=== PATIENT | female | born 1995 | race Caucasian/White ===

== ENCOUNTER 2017-05-08 09:16 | Emergency (ER) | payer OTHER ==
--- OUTSIDE RECORDS SUMMARY | 2017-05-08 09:26 | XMS REPORT ---
:1995 [facility] [address] [place] [address] Care Team Providers Name Role Phone Anshu Braswell Unavailable Unavailable Problems This patient has no known problems. Allergies, Adverse Reactions, Alerts This patient has no known allergies or adverse reactions. Medications This patient has no known medications. Results Test Description Test Time Test Comments Text Results Atomic Results Result Comments Chemistry 2016-09-26 07:19:00 Test Item Value Reference Range Comments Chemistry (test code=NA-T) 137 mmol/L 136-145 Chemistry (test code=K-T) 4.2 mmol/L 3.5-5.1 Chemistry (test code=CL) 107 mmol/L 98-107 Chemistry (test code=CO2) 24 mmol/L 22-29 Chemistry (test code=ANGP) 10 mmol/L 10-20 Chemistry (test code=BUN) 9 mg/dL 7.0-18.7 Chemistry (test code=CREATT) 0.82 mg/dL 0.6-1.1 Chemistry (test code=EGFRMDRD) 89 Reference Range for Estimated GFR: Greater than 90 mL/min/1.73 m2NOTE:The MDRD equation has not been validated for use with theelderly (over 70 years of age), women, patientswith serious comorbid condition or persons with extremes ofbody size, muscle mass, or nutritional status. Chemistry (test code=GLU-T) 136 mg/dL 70-105 Chemistry (test code=CA) 9.1 mg/dL 7.8-10.44 [id number] 07:19:00 Test Item Value Reference Range Comments Chemistry (test code=CK) 415 U/L 29-168 [id number] 07:19:00 Test Item Value Reference Range Comments Chemistry (test code=PHOS) 3.0 mg/dL 2.3-4.7 [id number] 07:19:00 Test Item Value Reference Range Comments Chemistry (test code=MG) 2.0 mg/dL 1.7-2.2 [id number] 06:37:00 Test Item Value Reference Range Comments Hematology (test code=WBCT) 14.7 thou/uL 4.8-10.8 Hematology (test code=RBCT) 4.07 mill/uL 4.00-5.20 Hematology (test code=HGBT) 12.4 g/dL 12.0-16.0 Hematology (test code=HCTT) 36.8 % 36.0-47.0 Hematology (test code=MCV) 90.5 fl 77.0-87.0 Hematology (test code=MCH) 30.6 pg 25.0-35.0 Hematology (test code=MCHC) 33.8 g/dL 32.0-36.0 Hematology (test code=RDW) 12.7 % 11.5-14.5 Hematology (test code=PLTT) 229 thou/uL 130-400 Hematology (test code=MPV) 6.8 fL 7.4-10.4 Hematology (test code=%NEUT) 94.4 % 31.0-61.0 Hematology (test code=%LYMPH) 2.9 % 28.0-48.0 Hematology (test code=%MONO) 2.6 % 0.0-4.0 Hematology (test code=%EOS) 0.1 % 0.0-10.0 Hematology (test code=%BASO) 0.0 % 0.0-1.0 Hematology (test code=NEUT#) 13.9 thou/uL 1.40-6.50 Hematology (test code=LYMPH#) 0.4 thou/uL 1.20-3.40 Hematology (test code=MONO#) 0.4 thou/uL 0.11-0.59 Hematology (test code=EOS#) 0.0 thou/uL 0.0-0.7 Hematology (test code=BASO#) 0.0 thou/uL 0.0-0.2 Chemistry - [id number] 22:06:00 Test Item Value Reference Range Comments Chemistry - Specials (test Negative NEGATIVE Method of sensitivity- code=BHCGST) Indeterminant: results should be repeated after 48-72 hrs Positive: results may be detected as early as 1 day after the first missed menses. [id number] 21:20:00 Test Item Value Reference Range Comments Chemistry (test code=CK) 78 U/L 29-168 Blood in [id number] 20:12:00 Test Item Value Reference Range Comments Chemistry (test code=NA-T) 136 mmol/L 136-145 Chemistry (test code=K-T) 3.8 mmol/L 3.5-5.1 Chemistry (test code=CL) 108 mmol/L 98-107 Chemistry (test code=CO2) 18 mmol/L 22-29 Chemistry (test code=ANGP) 14 mmol/L 10-20 Chemistry (test code=BUN) 14 mg/dL 7.0-18.7 Chemistry (test code=CREATT) 0.81 mg/dL 0.6-1.1 Chemistry (test 90 Reference Range for Estimated code=EGFRMDRD) GFR: Greater than 90 mL/min/1.73 m2NOTE:The MDRD equation has not been validated for use with theelderly (over 70 years of age), women, patientswith serious comorbid condition or persons with extremes ofbody size, muscle mass, or nutritional status. Chemistry (test code=GLU-T) 130 mg/dL 70-105 Chemistry (test code=CA) 8.9 mg/dL 7.8-10.44 Chemistry (test code=TBILI) 0.3 mg/dL 0.2-1.2 Chemistry (test code=TP) 6.9 g/dL 6.0-8.3 Chemistry (test code=ALB) 4.0 g/dL 3.5-5.0 Chemistry (test code=GLOB) 2.9 g/dL 2.4-3.5 Chemistry (test code=AG) 1.4 g/dL 1.2-2.2 Chemistry (test code=ALP) 86 U/L 40-150 Chemistry (test code=AST) 19 U/L 5-34 Chemistry (test code=ALT) 12 U/L 8-55 [id number] 20:12:00 Test Item Value Reference Range Comments Chemistry (test Less than 10 Less than 10 The pharmacological response code=ETOH) mg/dL to blood alcohol levels mayvary from individual to individual. Negative: Less than 10 mg/dL Toxic: 50 - 100 mg/dL Depression of WINDOWS SERVER SUPPORT TECHNICIAN: Greater than 100 mg/dL Fatalities reported: Greater than 400 mg/dL Chemistry - [id number] 20:09:00 Test Item Value Reference Range Comments Chemistry - Lactate (test code=LACTSEP-T) 1.3 mmol/L 0.5-2.2 [id number] 19:53:00 Test Item Value Reference Range Comments Hematology (test code=WBCT) 15.6 thou/uL 4.8-10.8 Hematology (test code=RBCT) 4.45 mill/uL 4.00-5.20 Hematology (test code=HGBT) 13.0 g/dL 12.0-16.0 Hematology (test code=HCTT) 40.0 % 36.0-47.0 Hematology (test code=MCV) 89.8 fl 77.0-87.0 Hematology (test code=MCH) 29.2 pg 25.0-35.0 Hematology (test code=MCHC) 32.5 g/dL 32.0-36.0 Hematology (test code=RDW) 12.7 % 11.5-14.5 Hematology (test code=PLTT) 253 thou/uL 130-400 Hematology (test code=MPV) 9.0 fL 7.4-10.4 Hematology (test code=%NEUT) 78.5 % 31.0-61.0 Hematology (test code=%LYMPH) 12.3 % 28.0-48.0 Hematology (test code=%MONO) 7.7 % 0.0-4.0 Hematology (test code=%EOS) 0.8 % 0.0-10.0 Hematology (test code=%BASO) 0.7 % 0.0-1.0 Hematology (test code=NEUT#) 12.2 thou/uL 1.40-6.50 Hematology (test code=LYMPH#) 1.9 thou/uL 1.20-3.40 Hematology (test code=MONO#) 1.2 thou/uL 0.11-0.59 Hematology (test code=EOS#) 0.1 thou/uL 0.0-0.7 Hematology (test code=BASO#) 0.1 thou/uL 0.0-0.2
--- NOTE | 2017-05-08 10:50 | ER ---
Nurse's Notes [facility] Name: Steffen Edge Age: 22 yrs Sex: Female : 1995 Arrival Date: 05/08/2017 Time: 09:18 Bed 15 Private MD: Diagnosis: Acute upper respiratory infection, unspecified Presentation: 05/08 09:30 Presenting complaint: Patient states: sore, itchy throat and sinus pressure x 3 days. ss Denies fever. Transition of care: patient was not received from another setting of care. Onset of symptoms was May 05, 2017. Care prior to arrival: None. 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 - Social history:: Smoking status: Patient/guardian denies using tobacco. Screenin:56 Abuse screen: Denies threats or abuse. Nutritional screening: No deficits noted. rb1 Tuberculosis screening: No symptoms or risk factors identified. Fall Risk None identified. Assessment: 09:56 General: Appears in no apparent distress. comfortable, Behavior is calm, cooperative. rb1 General: Reports chills for 2-3 days. Pain: Complains of pain in throat Pain currently is 5 out of 10 on a pain scale. Pain began 2-3 days ago. Neuro: Level of Consciousness is awake, alert, obeys commands, Oriented to person, place, time, situation. Cardiovascular: Capillary refill < 3 seconds is brisk in bilateral fingers. Respiratory: Airway is patent Respiratory effort is even, unlabored, Respiratory pattern is regular, symmetrical, Breath sounds are clear bilaterally. GI: Reports nausea. : No signs and/or symptoms were reported regarding the genitourinary system. EENT: Throat is reddened. Derm: Skin is pink, warm \T\ dry. 10:55 Reassessment: Patient appears in no apparent distress at this time. No changes from rb1 previously documented assessment. Vital Signs: 09:33 BP 115 / 74; Pulse 94; Resp 15; Temp 97.8(TE); Pulse Ox 100% on R/A; Weight 72.57 kg; Height 5 ft. 0 in. (152.40 cm); Pain 7/10; 10:30 BP 119 / 81; Pulse 88; Resp 18; Pulse Ox 99% on R/A; rb1 09:33 Body Mass Index 31.25 (72.57 kg, 152.40 cm) ED Course: 09:18 Patient arrived in ED. as 09:32 Triage completed. 09:33 Arm band placed on left wrist. 09:56 Meme Wilson, RN is Primary Nurse. rb1 09:56 Patient has correct armband on for positive identification. Bed in low position. Call rb1 light in reach. Side rails up X 1. Pulse ox on. NIBP on. 09:57 Renato Alberts MD is Attending Physician. 10:59 No provider procedures requiring assistance completed. Patient did not have IV access rb1 during this emergency room visit. Administered Medications: No medications were administered Outcome: 10:49 Discharge ordered by . gs 10:59 Discharged to home ambulatory, with family. rb1 10:59 Condition: stable 10:59 Discharge instructions given to patient, Instructed on discharge instructions, follow up and referral plans. medication usage, Demonstrated understanding of instructions, follow-up care, medications, Prescriptions given X 2. 10:59 Patient left the ED. rb1 Signatures: Alena Boyce Shelby, RN RN Meme Wilson, RAMSEY RN [facility] Renato Alberts MD MD
--- NOTE | 2017-05-08 10:50 | EDPHYS ---
Physician Documentation [facility] Name: Steffen Edge Age: 22 yrs Sex: Female : 1995 Arrival Date: 05/08/2017 Time: 09:18 Bed 15 Private MD: ED Physician Renato Alberts HPI: 05/08 10:44 This 22 yrs old Unknown Female presents to ER via Ambulatory with complaints of Cough, gs Sore Throat. 10:44 The patient or guardian reports cough, flu symptoms, arthralgias, myalgias. Onset: The gs symptoms/episode began/occurred 3 day(s) ago. Severity of symptoms: At their worst the symptoms were moderate, in the emergency department the symptoms are unchanged. Modifying factors: The symptoms are alleviated by nothing, the symptoms are aggravated by nothing. Associated signs and symptoms: Pertinent positives: chest pain, sore throat, Pertinent negatives: fever, nausea. The patient has experienced similar episodes in the past, a few times. 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 - Social history:: Smoking status: Patient/guardian denies using tobacco. ROS: 10:44 All other systems are negative. gs Exam: 10:44 Head/Face: Normocephalic, atraumatic. Eyes: Pupils equal round and reactive to light, gs extra-ocular motions intact. Lids and lashes normal. Conjunctiva and sclera are non-icteric and not injected. Cornea within normal limits. Periorbital areas with no swelling, redness, or edema. ENT: Nares patent. No nasal discharge, no septal abnormalities noted. Tympanic membranes are normal and external auditory canals are clear. Oropharynx with no redness, swelling, or masses, exudates, or evidence of obstruction, uvula midline. Mucous membranes moist. Neck: Trachea midline, no thyromegaly or masses palpated, and no cervical lymphadenopathy. Supple, full range of motion without nuchal rigidity, or vertebral point tenderness. No Meningismus. Chest/axilla: Normal chest wall appearance and motion. Nontender with no deformity. No lesions are appreciated. Cardiovascular: Regular rate and rhythm with a normal S1 and S2. No gallops, murmurs, or rubs. Normal PMI, no JVD. No pulse deficits. Respiratory: Lungs have equal breath sounds bilaterally, clear to auscultation and percussion. No rales, rhonchi or wheezes noted. No increased work of breathing, no retractions or nasal flaring. Abdomen/GI: Soft, non-tender, with normal bowel sounds. No distension or tympany. No guarding or rebound. No evidence of tenderness throughout. Back: No spinal tenderness. No costovertebral tenderness. Full range of motion. Skin: Warm, dry with normal turgor. Normal color with no rashes, no lesions, and no evidence of cellulitis. MS/ Extremity: Pulses equal, no cyanosis. Neurovascular intact. Full, normal range of motion. Neuro: Awake and alert, GCS 15, oriented to person, place, time, and situation. Cranial nerves II-XII grossly intact. Motor strength 5/5 in all extremities. Sensory grossly intact. Cerebellar exam normal. Normal gait. 10:44 Constitutional: The patient appears alert, awake. Vital Signs: 09:33 BP 115 / 74; Pulse 94; Resp 15; Temp 97.8(TE); Pulse Ox 100% on R/A; Weight 72.57 kg; ss Height 5 ft. 0 in. (152.40 cm); Pain 7/10; 10:30 BP 119 / 81; Pulse 88; Resp 18; Pulse Ox 99% on R/A; rb1 09:33 Body Mass Index 31.25 (72.57 kg, 152.40 cm) MDM: 10:30 Patient medically screened. 10:44 Differential Diagnosis: Influenza Upper Respiratory Infection Sinusitis. Data reviewed: vital signs, nurses notes. Response to treatment: the patient's symptoms have mildly improved after treatment, and as a result, I will discharge patient. Administered Medications: No medications were administered Disposition: 05/08/17 10:49 Discharged to Home. Impression: Acute upper respiratory infection, unspecified. - Condition is Stable. - Discharge Instructions: Upper Respiratory Infection, Adult. - Prescriptions for Flonase Allergy Relief 50 mcg/actuation Nasal spray,suspension - inhale 2 spray by INTRANASAL route once daily for 5 days; 1 bottle. Zyrtec 10 mg Oral Tablet - take 1 tablet by ORAL route once daily As needed; 20 tablet. - School release form, Medication Reconciliation Form, Thank You Letter, Antibiotic Education, Prescription Opioid Use form. - Follow up: Private Physician; When: 2 - 3 days; Reason: Re-evaluation by your physician. Signatures: Shannan Car RN RN ss Meme Wilson RN RN rb1 Renato Alberts MD MD
[2017-05-08 11:03] VITALS: TEMP 97.8
[2017-05-08 11:04] VITALS: BP 119/81; O2SAT 99
== END 2017-05-08 10:59 | disposition home or self-care (01) ==
LOC: ER 09:16
DX: J06.9 Acute upper respiratory infection, unspecified (principal)
CPT/HCPCS: 99283

== ENCOUNTER 2017-06-12 10:33 | Emergency (ER) | payer OTHER ==
--- OUTSIDE RECORDS SUMMARY | 2017-06-12 10:34 | XMS REPORT ---
:1995 [facility] Address [address] [place] [address] Care Team Providers Name Role Phone Mingo Braswell Unavailable Unavailable Problems This patient has [...] 70-105 Chemistry (test code=CA) 9.1 mg/dL 7.8-10.44 [id number] 07:19:00 Test Item Value Reference Range Comments Chemistry (test code=CK) 415 U/L 29-168 [id number] 07:19:00 Test Item Value Reference Range Comments Chemistry (test code=PHOS) 3.0 mg/dL 2.3-4.7 [id number] 07:19:00 Test Item Value Reference Range Comments Chemistry (test code=MG) 2.0 mg/dL 1.7-2.2 [id number] 06:37:00 Test Item Value Reference Range Comments [...] (test code=BASO#) 0.0 thou/uL 0.0-0.2 Chemistry - [id number] 22:06:00 Test Item Value Reference Range Comments Chemistry - Specials (test Negative NEGATIVE Method of sensitivity- code=BHCGST) Indeterminant: results should be repeated after 48-72 hrs Positive: results may be detected as early as 1 day after the first missed menses. [id number] 21:20:00 Test Item Value Reference Range Comments Chemistry (test code=CK) 78 U/L 29-168 Blood in [id number] 20:12:00 Test Item Value Reference Range Comments [...] 5-34 Chemistry (test code=ALT) 12 U/L 8-55 [id number] 20:12:00 Test Item Value Reference Range Comments Chemistry (test Less than 10 Less than 10 The pharmacological response code=ETOH) mg/dL to blood alcohol levels mayvary from individual to individual. Negative: Less than 10 mg/dL Toxic: 50 - 100 mg/dL Depression of WRAPPER SELECTOR: Greater than 100 mg/dL Fatalities reported: Greater than 400 mg/dL Chemistry - [id number] 20:09:00 Test Item Value Reference Range Comments Chemistry - Lactate (test code=LACTSEP-T) 1.3 mmol/L 0.5-2.2 [id number] 19:53:00 Test Item Value Reference Range Comments [...]
[2017-06-12] MEDS ORDERED: ONDANSETRON 4 MG (ODT) TAB ONE (12:21)
[2017-06-12 13:20] LABS: Urine Blood TRACE (NEG); Urine Glucose NEGATIVE (NEG); Urine Protein NEGATIVE (NEG)
--- NOTE | 2017-06-12 13:25 | ER ---
Nurse's Notes [facility] Name: Steffen Edge Age: 22 yrs Sex: Female : 1995 Arrival Date: 06/12/2017 Time: 10:36 Bed Treatment Private MD: Diagnosis: Acute tonsillitis Presentation: 06/12 10:38 Presenting complaint: Patient states: my throat is really sore and it started Sunday, hj and fever yesterday and body aches; took zyrtec and ibuprofen yesterday;. Transition of care: patient was not received from another setting of care. Onset of symptoms was June 12, 2017. Initial Sepsis Screen: Does the patient meet any 2 criteria? No. Patient's initial sepsis screen is negative. Does the patient have a suspected source of infection? Yes:. Care prior to arrival: None. 10:38 Method Of Arrival: Ambulatory 10:38 Acuity: JORGE 4 hj Triage Assessment: 10:39 General: Appears in no apparent distress. uncomfortable, Behavior is calm, cooperative, hj appropriate for age. Pain: Complains of pain in throat and body aches. EENT: Reports pain when swallowing. 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 - Social history:: Smoking status: unknown. Screenin:15 Fall Risk None identified. iw 13:17 Abuse screen: Denies threats or abuse. Denies injuries from another. Nutritional iw screening: No deficits noted. Tuberculosis screening: No symptoms or risk factors identified. Assessment: 10:40 Respiratory: Airway is patent Respiratory effort is even, unlabored, Respiratory hj pattern is regular, symmetrical, Breath sounds are clear. EENT: Throat. 13:17 Reassessment: Patient appears in no apparent distress at this time. Patient and/or iw family updated on plan of care and expected duration. Pain level reassessed. Patient is alert, oriented x 3, equal unlabored respirations, skin warm/dry/pink. Vital Signs: 10:40 BP 101 / 65; Pulse 113; Resp 18; Temp 99.1(TE); Pulse Ox 100% on R/A; Weight 72.57 kg; hj Height 5 ft. 0 in. (152.40 cm); Pain 10/10; 10:40 Body Mass Index 31.25 (72.57 kg, 152.40 cm) hj ED Course: 10:36 Patient arrived in ED. mr 10:39 Triage completed. hj 10:40 Arm band placed on left wrist. hj 10:40 Patient has correct armband on for positive identification. iw 11:47 Adrian Soares PA is PHCP. cp 11:47 Adrian Pineda MD is Attending Physician. cp 11:56 Lilliana Chan, RN is Primary Nurse. iw 14:15 No provider procedures requiring assistance completed. Patient did not have IV access iw during this emergency room visit. Administered Medications: 12:22 Drug: Zofran 4 mg Route: PO; iw 13:30 Drug: GI Cocktail without - (Maalox Suspension 30 ml, Lidocaine Liquid 2 % 15 hj ml) Route: PO; 13:40 Follow up: Response: No adverse reaction iw 13:30 Drug: Decadron 10 mg Route: PO; hj 13:40 Follow up: Response: No adverse reaction iw 13:30 Drug: Rocephin (cefTRIAXone) 1 grams Route: IM; Site: left gluteus; hj 13:45 Follow up: Response: No adverse reaction iw Outcome: 13:24 Discharge ordered by MD. cp 14:17 Discharged to home ambulatory, with family. iw 14:17 Condition: good 14:17 Discharge instructions given to patient, family, Instructed on discharge instructions, follow up and referral plans. medication usage, Demonstrated understanding of instructions, follow-up care, medications, Prescriptions given X 4. 14:17 Patient left the ED. iw Signatures: Soo Berrios mr Lilliana Chan, RN RN iw Raman Cho RN RN Adrian Soares PA PA cp
--- NOTE | 2017-06-12 13:25 | EDPHYS ---
Physician Documentation [facility] Name: Steffen Edge Age: 22 yrs Sex: Female : 1995 Arrival Date: 06/12/2017 Time: 10:36 Bed Treatment Private MD: ED Physician Adrian Pineda HPI: 06/12 11:55 This 22 yrs old Female presents to ER via Ambulatory with complaints of cp Fever, Sore Throat. 11:55 The patient presents with sore throat. Onset: The symptoms/episode began/occurred 2 cp day(s) ago. 11:55 Severity of symptoms: in the emergency department the symptoms are unchanged, despite cp home interventions. Associated signs and symptoms: Pertinent positives: dysphagia, fever, Pertinent negatives cough, flu-like symptoms. 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 - Social history:: Smoking status: unknown. ROS: 12:00 Constitutional: Negative for body aches, chills, poor PO intake. cp 12:00 Eyes: Negative for injury, pain, redness, and discharge. cp 12:00 ENT: Positive for sore throat, Negative for rhinorrhea, sinus congestion, difficulty swallowing, difficulty handling secretions. 12:00 Neck: Negative for pain with movement, pain at rest, stiffness. 12:00 Cardiovascular: Negative for chest pain, edema, palpitations. 12:00 Respiratory: Negative for cough, shortness of breath, wheezing. 12:00 Abdomen/GI: Positive for nausea, dysphagia, Negative for vomiting, diarrhea, constipation. 12:00 Skin: Negative for cellulitis, rash. 12:00 Neuro: Negative for headache, weakness. 12:00 All other systems are negative. Exam: 12:05 Constitutional: The patient appears in no acute distress, alert, awake, non-toxic, well cp developed, well nourished. 12:05 Head/Face: Normocephalic, atraumatic. cp 12:05 Eyes: Periorbital structures: appear normal, Conjunctiva: normal, no exudate, no injection, Sclera: no appreciated abnormality, Lids and lashes: appear normal, bilaterally. 12:05 ENT: External ear(s): are unremarkable, Ear canal(s): are normal, clear, TM's: bulging, cp is not appreciated, bilaterally, dullness, bilaterally, erythema, is not appreciated, bilaterally, Nose: is normal, Mouth: Lips: moist, Oral mucosa: moist, Posterior pharynx: Airway: no evidence of obstruction, patent, Tonsils: bilaterally enlarged, with erythema, with exudate, Uvula: midline, swelling, is not appreciated, erythema, that is moderate, Voice: is hoarse. 12:05 Neck: ROM/movement: is normal, is supple, no range of motions limitations, no meningismus, no nuchal rigidity. 12:05 Chest/axilla: Inspection: normal, Palpation: is normal, no crepitus, no tenderness. 12:05 Cardiovascular: Rate: tachycardic, Rhythm: regular. 12:05 Respiratory: the patient does not display signs of respiratory distress, Respirations: normal, no use of accessory muscles, no retractions, no splinting, no tachypnea, labored breathing, is not present, Breath sounds: are clear throughout, no decreased breath sounds, no stridor, no wheezing. 12:05 Abdomen/GI: Exam negative for discomfort, distension, guarding, Inspection: abdomen appears normal. 12:05 Skin: cellulitis, is not appreciated, no rash present. 12:05 Neuro: Orientation: to person, place \T\ time. Mentation: lucid, able to follow commands, cp Cerebellar function: is grossly normal, Motor: moves all fours, strength is normal, Sensation: no obvious gross deficits. Vital Signs: 10:40 BP 101 / 65; Pulse 113; Resp 18; Temp 99.1(TE); Pulse Ox 100% on R/A; Weight 72.57 kg; hj Height 5 ft. 0 in. (152.40 cm); Pain 10/10; 10:40 Body Mass Index 31.25 (72.57 kg, 152.40 cm) hj MDM: 11:47 Patient medically screened. cp 13:00 Differential diagnosis: apthous ulcer, group A strep tonsillitis, arely's angina, cp mononucleosis, peritonsillar abscess chlamydia pharyngitis, neisseria gonorrheoeae pharangitis, Mycoplasma Pharyngitis pharyngitis, retropharyngeal abcess tonsillitis, uvulitis. 13:20 Data reviewed: vital signs, nurses notes, lab test result(s). 06/12 10:42 Order name: Strep; Complete Time: 11:47 hj 06/12 11:12 Order name: Throat Culture EDMD 06/12 11:55 Order name: Dougherty Screen Profile; Complete Time: 13:11 cp 06/12 13:17 Order name: Urine Dipstick--Ancillary (enter results) [facility] 06/12 13:17 Order name: Urine --Ancillary (enter results) [facility] 06/12 11:55 Order name: Urine Dipstick-Ancillary (obtain specimen); Complete Time: 12:27 cp 06/12 11:55 Order name: Urine Test (obtain specimen); Complete Time: 12:27 cp 06/12 13:24 Order name: PO challenge; Complete Time: 13:44 cp Administered Medications: 12:22 Drug: Zofran 4 mg Route: PO; iw 13:30 Drug: GI Cocktail without - (Maalox Suspension 30 ml, Lidocaine Liquid 2 % 15 hj ml) Route: PO; 13:40 Follow up: Response: No adverse reaction iw 13:30 Drug: Decadron 10 mg Route: PO; hj 13:40 Follow up: Response: No adverse reaction iw 13:30 Drug: Rocephin (cefTRIAXone) 1 grams Route: IM; Site: left gluteus; hj 13:45 Follow up: Response: No adverse reaction iw Disposition: 06/13 07:02 Co-signature as Attending Physician, Adrian Pineda MD I agree with the assessment and sheree plan of care. Disposition: 06/12/17 13:24 Discharged to Home. Impression: Acute tonsillitis. - Condition is Stable. - Discharge Instructions: Tonsillitis. - Prescriptions for Biaxin 500 mg Oral Tablet - take 1 tablet by ORAL route every 12 hours for 10 days; 20 tablet. Zofran 4 mg Oral Tablet - take 1 tablet by ORAL route every 12 hours As needed; 20 tablet. Prednisone 20 mg Oral Tablet - take 2 tablet by ORAL route once daily for 5 days; 10 tablet. acetaminophen- codeine 120-12 mg/5 mL Oral Elixir - take 10 milliliters by ORAL route every 6 hours; 150 milliliter. - School release form, Medication Reconciliation Form, Thank You Letter, Antibiotic Education, Prescription Opioid Use form. - Follow up: Private Physician; When: 2 - 3 days; Reason: Recheck today's complaints. - Problem is new. - Symptoms have improved. Signatures: Dispatcher [employer] EDMS Adrian Pineda MD MD cha Williams, Irene RN Raman Gerard RN RN hj Page, Corey, PA PA cp Corrections: (The following items were deleted from the chart) 06/12 14:17 13:24 06/12/2017 13:24 Discharged to Home. Impression: Acute tonsillitis. Condition is iw Stable. Forms are Medication Reconciliation Form, Thank You Letter, Antibiotic Education, Prescription Opioid Use. Follow up: Private Physician; When: 2 - 3 days; Reason: Recheck today's complaints. Problem is new. Symptoms have improved. cp 20:41 12:05 ENT: External ear(s): are unremarkable, Ear canal(s): are normal, clear, TM's: cp dullness, bilaterally, Nose: is normal, Mouth: is normal, Posterior pharynx: Airway: patent, Tonsils: bilaterally enlarged, with erythema, with exudate, Uvula: midline, swelling, is not appreciated, erythema, cp
[2017-06-12] MEDS ORDERED: MAGNE/ALUM HYDROXD 30 ML UCUP ONE (13:34)
[2017-06-12] MEDS ORDERED: LIDOCAINE 1% MPF 5 ML VIAL ONE (13:34)
[2017-06-12] MEDS ORDERED: LIDOCAINE VISCOUS 2% SOLN 15 ML UDC ONE (13:34)
[2017-06-12] MEDS ORDERED: DEXAMETHASONE 4 MG TAB ONE (13:34)
[2017-06-12] MEDS ORDERED: CEFTRIAXONE 1000 MG/VIAL ONE (13:34)
[2017-06-12 14:26] VITALS: BP 101/65; TEMP 99.1; O2SAT 100
== END 2017-06-12 14:17 | disposition home or self-care (01) ==
LOC: ER 10:33
DX: J03.90 Acute tonsillitis, unspecified (principal)
CPT/HCPCS: 36415; 81003; 81025; 86308; 87070; 87081; 96372; 99283

== ENCOUNTER 2017-12-13 07:50 | Emergency (ER) | payer OTHER ==
--- OUTSIDE RECORDS SUMMARY | 2017-12-13 07:53 | XMS REPORT ---
:1995 Author Organization e[employer] Care Team Providers Name Role Phone Janice Soriano Provider Role Unavailable Allergies, Adverse Reactions, Alerts Substance Reaction Event Type N.K.D.A. Info Not Available Non Drug Allergy Problems Problem Type Condition Code Onset Dates Condition Status Problem Ankle fracture S82.899A Active Problem Fracture, radius S52.90XA Active Problem Removal of staple Z48.02 Active Assessment BCP ( control pills) Z30.011 Active initiation Assessment control counseling Z30.09 Active Medications Medication Code Code Instructions Start End Status Dosage System Date Date Ultram [facility] 46748054585 50 MG Orally Active 1 tablet every 6 hrs as needed Eliquis [facility] [address]-94 2.5 MG Orally Active 1 tablet Twice a day Ibuprofen [facility] [address]-13 800 MG Orally Active 1 tablet every 8 hrs with food or milk as needed Lo Loestrin Fe ND 86278126704 1 MG-10 MCG / June 21, Active 1 tablet 10 MCG Orally 2017 Once a day [place] [facility] 09453248602 5-325 MG Orally Active 1 tablet every 6 hrs as needed Gabapentin [facility] 09532262106 300 MG Orally Active 1 capsule Once a day Results Name Result Date Reference Range Unit Abnormality Flag TEST URINE ----RESULTS Negative [id number] Summary Purpose [employer]ClinicalWorks Submission
--- OUTSIDE RECORDS SUMMARY | 2017-12-13 07:53 | XMS REPORT ---
:1995 Author Organization [employer] Care Team Providers Name Role Phone [address] Provider Role Unavailable Allergies, Adverse Reactions, Alerts Substance Reaction Event Type N.K.D.A. 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 Problem Ankle fracture S82.899A Active Problem Fracture, radius S52.90XA Active Problem Removal of staple Z48.02 Active Assessment Closed displaced fracture of neck S92.111S Active of right talus, sequela Assessment Closed displaced fracture of S82.51XS Active medial malleolus of right tibia, sequela Assessment Pain in right ankle and joints of M25.571 Active right foot Medications Medication Code Code Instructions Start End Status Dosage System Date Date Eliquis [facility] 82764288094 2.5 MG Orally Active 1 tablet Twice a day Gabapentin ND 83445538378 300 MG Orally Active 1 capsule Once a day [place] ND 33047517227 5-325 MG Orally Active 1 tablet every 6 hrs as needed Mobic ND 63062987338 7.5 MG Orally August 28Sep 27, Active 1 tablet Once a day 2017 2017 Tylenol # 3 ND 0 300/30mg PO August 28Sep 12, Active one tab EVERY 6 HOURS 2017 2017 PRN PAIN Ultram ND 87608972973 50 MG Orally Active 1 tablet every 6 hrs as needed Ibuprofen ND 02170526953 800 MG Orally Active 1 tablet every 8 hrs with food or milk as needed Lo Loestrin Fe ND 32180893184 1 MG-10 MCG / June 21, Active 1 tablet MCG Orally Once 2018 a day Results No Known Results Summary Purpose eClinicalWorks Submission
--- OUTSIDE RECORDS SUMMARY | 2017-12-13 07:53 | XMS REPORT ---
:1995 [facility] Address [address] [place] [address] Care Team Providers Name Role Phone Mingo [...] 70-105 Chemistry (test code=CA) 9.1 mg/dL 7.8-10.44 [id number] 07:19:00 Test Item Value Reference Range Comments Chemistry (test code=CK) 415 U/L 29-168 [id number] 07:19:00 Test Item Value Reference Range Comments Chemistry (test code=PHOS) 3.0 mg/dL 2.3-4.7 [id number] 07:19:00 Test Item Value Reference Range Comments Chemistry (test code=MG) 2.0 mg/dL 1.7-2.2 [id number] 06:37:00 Test Item Value Reference Range Comments [...] (test code=BASO#) 0.0 thou/uL 0.0-0.2 Chemistry - [id number] 22:06:00 Test Item Value Reference Range Comments Chemistry - Specials (test Negative NEGATIVE Method of sensitivity- code=BHCGST) Indeterminant: results should be repeated after 48-72 hrs Positive: results may be detected as early as 1 day after the first missed menses. [id number] 21:20:00 Test Item Value Reference Range Comments Chemistry (test code=CK) 78 U/L 29-168 Blood in [id number] 20:12:00 Test Item Value Reference Range Comments [...] 5-34 Chemistry (test code=ALT) 12 U/L 8-55 [id number] 20:12:00 Test Item Value Reference Range Comments Chemistry (test Less than 10 Less than 10 The pharmacological response code=ETOH) mg/dL to blood alcohol levels mayvary from individual to individual. Negative: Less than 10 mg/dL Toxic: 50 - 100 mg/dL Depression of [employer]: Greater than 100 mg/dL Fatalities reported: Greater than 400 mg/dL Chemistry - [id number] 20:09:00 Test Item Value Reference Range Comments Chemistry - Lactate (test code=LACTSEP-T) 1.3 mmol/L 0.5-2.2 [id number] 19:53:00 Test Item Value Reference Range Comments [...]
--- OUTSIDE RECORDS SUMMARY | 2017-12-13 07:53 | XMS REPORT ---
[...] Start End Status Dosage System Date Date Mobic ND 92045052283 7.5 MG Orally Active 1 tablet Once a day Tylenol with ND 68053608224 300-30 MG Orally Oct 16, Active 1 tablet as Codeine #3 every 6 hrs 2018 needed Lo Loestrin Fe ND 47525864609 1 MG-10 MCG / June 21, Active 1 tablet MCG Orally Once 2018 a day Voltaren ND 02803201286 1 % Transdermal Oct 16, Nov 15, Active apply small qid 2017 2018 amount to affected joint Results No Known Results Summary Purpose eClinicalWorks Submission
[2017-12-13] MEDS ORDERED: NA CHLORIDE 0.9% 1,000 ML ONE ×2 (08:27→10:26)
[2017-12-13] MEDS ORDERED: ONDANSETRON 4 MG/2 ML VIAL ONE ×2 (08:27→10:26)
[2017-12-13 08:59] LABS: Urine Blood 1+ (NEG); Urine Glucose NEGATIVE (NEG); Urine Protein NEGATIVE (NEG); Urine Specific Gravity 1.025 (1.005-1.030); Urine pH 5.5 (5.0-7.0)
[2017-12-13 09:01] LABS: Absolute Lymphocytes (CBC) 0.3 K/uL (0.7-4.9); Absolute Monocytes 0.7 K/uL (0.1-1.3); Absolute Neutrophil 14.8 K/uL (1.8-8.0); Basophils % 0.3 % (0-1.3); Eosinophils % 0.1 % (0-4.4); Lymphocytes % 2.2 % (15.3-44.8); MCH 28.7 pg (27.0-35.0); MCV 87.4 fL (80-100); MPV 9.3 fL (7.6-11.3); Monocytes % 4.2 % (3.3-12.3)
[2017-12-13 09:19] LABS: ALT/SGPT 24 U/L (12-78); AST/SGOT 15 U/L (15-37); Albumin 4.2 g/dL (3.4-5.0); Alkaline Phosphatase 119 U/L (45-117); BUN Blood Urea Nitrogen 17 mg/dL (7-18); Bicarbonate 25 mmol/L (21-32); Bilirubin Direct < 0.1 mg/dL (0-0.2); Bilirubin Total 0.4 mg/dL (0.2-1.0); Glucose Level 106 mg/dL (74-106); Lipase 81 U/L (73-393); Potassium 4.1 mmol/L (3.5-5.1); Protein, Total 8.2 g/dL (6.4-8.2); Sodium Level 138 mmol/L (136-145)
[2017-12-13 09:29] LABS: Blood Morphology Comment NOT SEEN (NOT SEEN); Platelet Estimate ADEQ; Urine White Blood Cell Casts OK
[2017-12-13] MEDS ORDERED: MORPHINE 4 MG/ML SYR ONE (10:26)
[2017-12-13] MEDS ORDERED: FAMOTIDINE 20 MG/2 ML VIAL IV ONE (10:26)
--- NOTE | 2017-12-13 11:28 | EDPHYS ---
Physician Documentation [facility] Name: Steffen Edge Age: 22 yrs Sex: Female : 1995 Arrival Date: 12/13/2017 Time: 07:53 Bed 14 Private MD: CIELO GRACE ED Physician Spenser Erwin HPI: 12/13 08:16 This 22 yrs old Female presents to ER via Ambulatory with complaints of kdr Vomiting/Diarrhea. 08:16 The patient presents to the emergency department with nausea, that is mild, vomiting, kdr that is intermittent, diarrhea, that is intermittent, abdominal pain, of the abdomen diffusely, described as achy, burning, crampy, dull, intermittent, and does not radiate. Onset: The symptoms/episode began/occurred gradually, last night, at 21:30, and became persistent. Possible causes: unknown. The symptoms are aggravated by nothing. The symptoms are alleviated by nothing. Associated signs and symptoms: Pertinent positives: abdominal pain, anorexia, diarrhea, nausea, vomiting. Severity of symptoms: At their worst the symptoms were mild just prior to arrival, in the emergency department the symptoms are unchanged. The patient has not experienced similar symptoms in the past. The patient has not recently seen a physician. States she had [employer] at lunch yesterday and ate with everyone else at 18:30 yesterday. No one else was ill at this time.. 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 - Social history:: Smoking status: Patient/guardian denies using tobacco. - Ebola Screening: : No symptoms or risks identified at this time. ROS: 08:16 Constitutional: Negative for fever, chills, and weight loss, Eyes: Negative for injury, kdr pain, redness, and discharge, ENT: Negative for injury, pain, and discharge, Neck: Negative for injury, pain, and swelling, Cardiovascular: Negative for chest pain, palpitations, and edema, Respiratory: Negative for shortness of breath, cough, wheezing, and pleuritic chest pain, Back: Negative for injury and pain, : Negative for injury, bleeding, discharge, and swelling, MS/Extremity: Negative for injury and deformity, Skin: Negative for injury, rash, and discoloration, Neuro: Negative for headache, weakness, numbness, tingling, and seizure activity. Psych: Negative for depression, anxiety, suicide ideation, homicidal ideation, and hallucinations, Allergy/Immunology: Negative for hives, rash, and allergies, Endocrine: Negative for neck swelling, polydipsia, polyuria, polyphagia, and marked weight changes, Hematologic/Lymphatic: Negative for swollen nodes, abnormal bleeding, and unusual bruising. 08:16 Abdomen/GI: Positive for nausea, vomiting, and diarrhea, Negative for constipation, abdominal distension, black/tarry stool, rectal pain, rectal bleeding. Exam: 08:16 Constitutional: This is a well developed, well nourished patient who is awake, alert, kdr and in no acute distress. Head/Face: Normocephalic, atraumatic. Eyes: Pupils equal round and reactive to light, extra-ocular motions intact. Lids and lashes normal. Conjunctiva and sclera are non-icteric and not injected. Cornea within normal limits. Periorbital areas with no swelling, redness, or edema. Neck: Trachea midline, no thyromegaly or masses palpated, and no cervical lymphadenopathy. Supple, full range of motion without nuchal rigidity, or vertebral point tenderness. No Meningismus. Chest/axilla: Normal chest wall appearance and motion. Nontender with no deformity. No lesions are appreciated. Cardiovascular: Regular rate and rhythm with a normal S1 and S2. No gallops, murmurs, or rubs. Normal PMI, no JVD. No pulse deficits. Respiratory: Lungs have equal breath sounds bilaterally, clear to auscultation and percussion. No rales, rhonchi or wheezes noted. No increased work of breathing, no retractions or nasal flaring. Abdomen/GI: Soft, non-tender, with normal bowel sounds. No distension or tympany. No guarding or rebound. No evidence of tenderness throughout. Back: No spinal tenderness. No costovertebral tenderness. Full range of motion. Skin: Warm, dry with normal turgor. Normal color with no rashes, no lesions, and no evidence of cellulitis. MS/ Extremity: Pulses equal, no cyanosis. Neurovascular intact. Full, normal range of motion. Neuro: Awake and alert, GCS 15, oriented to person, place, time, and situation. Cranial nerves II-XII grossly intact. Motor strength 5/5 in all extremities. Sensory grossly intact. Cerebellar exam normal. Normal gait. Psych: Awake, alert, with orientation to person, place and time. Behavior, mood, and affect are within normal limits. Vital Signs: 08:05 BP 110 / 75; Pulse 110; Resp 16; Temp 99.5(O); Pulse Ox 99% on R/A; Pain 8/10; hb 09:42 BP 100 / 72; Pulse 92; Resp 18; Pulse Ox 100% on R/A; hj 11:07 BP 104 / 65; Pulse 92; Resp 18; Pulse Ox 100% on R/A; hj MDM: 08:16 Differential diagnosis: Nonspecific abd pain, gastritis, cholecystitis, pancreatitis, kdr viral gastroenteritis, gastroenteritis. Data reviewed: vital signs, nurses notes, lab test result(s). Counseling: I had a detailed discussion with the patient and/or guardian regarding: the historical points, exam findings, and any diagnostic results supporting the discharge/admit diagnosis, lab results, the need for outpatient follow up. 11:27 Patient medically screened. kdr 12/13 08:16 Order name: Basic Metabolic Panel; Complete Time: 09:37 kdr 12/13 08:16 Order name: CBC with Diff; Complete Time: 09:37 kdr 12/13 08:16 Order name: Creatinine for Radiology; Complete Time: 09:37 kdr 12/13 08:16 Order name: Hepatic Function; Complete Time: 09:37 kdr 12/13 08:16 Order name: Lipase; Complete Time: 09:37 kdr 12/13 08:36 Order name: Urine Dipstick--Ancillary (enter results); Complete Time: 09:37 eb 12/13 08:36 Order name: Urine --Ancillary (enter results); Complete Time: 09:37 eb 12/13 09:05 Order name: CBC Smear Scan; Complete Time: 09:37 EDMS 12/13 10:12 Order name: Flu; Complete Time: 11:13 kdr 12/13 08:16 Order name: IV Saline Lock; Complete Time: 08:28 kdr 12/13 08:16 Order name: Labs collected and sent; Complete Time: 08:28 kdr 12/13 08:16 Order name: Urine Test (obtain specimen); Complete Time: 08:28 kdr 12/13 09:38 Order name: PO challenge; Complete Time: 09:39 kdr Administered Medications: 08:20 Drug: NS 0.9% 1000 ml Route: IV; Rate: 1 bolus; Site: left antecubital; hj 09:31 Follow up: IV Status: Completed infusion hj 08:20 Drug: Zofran 4 mg Route: IVP; Site: left antecubital; hj 09:30 Follow up: Response: No adverse reaction hj 10:14 Drug: NS 0.9% 1000 ml Route: IV; Rate: 1 bolus; Site: left antecubital; hj 11:33 Follow up: IV Status: Order to discontinue infusion; IV Intake: 700ml hj 10:14 Drug: morphine 4 mg Route: IVP; Site: left antecubital; hj 11:00 Follow up: Response: No adverse reaction; Pain is decreased hj 10:14 Drug: Zofran 4 mg Route: IVP; Site: left antecubital; hj 11:00 Follow up: Response: No adverse reaction hj 10:14 Drug: Pepcid 20 mg Route: IVP; Site: left antecubital; hj 11:00 Follow up: Response: No adverse reaction hj Disposition: 12/13/17 11:27 Discharged to Home. Impression: Vomiting, unspecified, Vomiting without nausea, Diarrhea, unspecified. - Condition is Stable. - Discharge Instructions: Food Choices to Help Relieve Diarrhea, Adult, Nausea and Vomiting, Adult, [id number], Diarrhea, Adult, [id number]-al-[id number]. - Prescriptions for Zofran 4 mg Oral Tablet - take 1 tablet by ORAL route every 4-6 hours As needed; 12 tablet. Tramadol 50 mg Oral Tablet - take 1 tablet by ORAL route every 8 hours as needed; 12 tablet. Lomotil 2.5- 0.025 mg Oral Tablet - take 2 tablet by ORAL route once daily As needed; 20 tablet. - Medication Reconciliation Form, Thank You Letter, Prescription Opioid Use, Work release form form. - Follow up: CIELO GRACE; When: 2 - 3 days; Reason: If symptoms return, Further diagnostic work-up, Recheck today's complaints, Continuance of care, Re-evaluation by your physician. - Problem is new. - Symptoms have improved. Signatures: Dispatcher [employer] EDMS Spenser Erwin MD MD kdr Raman Cho RN RN Charu Padilla RN RN Corrections: (The following items were deleted from the chart) 11:41 11:27 12/13/2017 11:27 Discharged to Home. Impression: Vomiting, unspecified; Vomiting hj without nausea; Diarrhea, unspecified. Condition is Stable. Forms are Medication Reconciliation Form, Thank You Letter, Antibiotic Education, Prescription Opioid Use. Follow up: CIELO GRACE; When: 2 - 3 days; Reason: If symptoms return, Further diagnostic work-up, Recheck today's complaints, Continuance of care, Re-evaluation by your physician. Problem is new. Symptoms have improved. kdr
--- NOTE | 2017-12-13 11:28 | ER ---
Nurse's Notes [facility] Name: Steffen Edge Age: 22 yrs Sex: Female : 1995 Arrival Date: 12/13/2017 Time: 07:53 Bed 14 Private MD: CIELO GRACE Diagnosis: Vomiting, unspecified;Vomiting without nausea;Diarrhea, unspecified Presentation: 12/13 08:04 Presenting complaint: Patient states: N/V/D and body aches x 2 days. Not tolerating hb liquids. Transition of care: patient was not received from another setting of care. Onset of symptoms was December 12, 2017. Risk Assessment: Do you want to hurt yourself or someone else? Patient reports no desire to harm self or others. Initial Sepsis Screen: Does the patient meet any 2 criteria? No. Patient's initial sepsis screen is negative. Does the patient have a suspected source of infection? No. Patient's initial sepsis screen is negative. Care prior to arrival: None. 08:04 Method Of Arrival: Ambulatory hb 08:04 Acuity: JORGE 3 hb Triage Assessment: 08:20 General: Appears in no apparent distress. uncomfortable, Behavior is calm, cooperative, hj appropriate for age. Pain: Denies pain. GI: Reports diarrhea, nausea, vomiting. 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 - Social history:: Smoking status: Patient/guardian denies using tobacco. - Ebola Screening: : No symptoms or risks identified at this time. Screenin:07 Abuse screen: Denies threats or abuse. Denies injuries from another. Nutritional hb screening: No deficits noted. Tuberculosis screening: No symptoms or risk factors identified. Fall Risk None identified. Assessment: 08:20 General: Appears in no apparent distress. uncomfortable, Behavior is calm, cooperative, hj appropriate for age. Pain: Denies pain. Neuro: Level of Consciousness is awake, alert, obeys commands, Oriented to person, place, time, situation, Appropriate for age. Cardiovascular: Capillary refill < 3 seconds Patient's skin is warm and dry. Respiratory: Airway is patent Respiratory effort is even, unlabored, Respiratory pattern is regular, symmetrical. GI: Abdomen is non-distended. : No signs and/or symptoms were reported regarding the genitourinary system. EENT: No signs and/or symptoms were reported regarding the EENT system. Derm: No signs and/or symptoms reported regarding the dermatologic system. Musculoskeletal: No signs and/or symptoms reported regarding the musculoskeletal system. 09:41 Reassessment: Patient and/or family updated on plan of care and expected duration. Pain hj level reassessed. Patient is alert, oriented x 3, equal unlabored respirations, skin warm/dry/pink. able to tolerate PO challenge;. 11:07 Reassessment: Patient and/or family updated on plan of care and expected duration. Pain hj level reassessed. Patient is alert, oriented x 3, equal unlabored respirations, skin warm/dry/pink. mom in room; awaiting POC:. Vital Signs: 08:05 BP 110 / 75; Pulse 110; Resp 16; Temp 99.5(O); Pulse Ox 99% on R/A; Pain 8/10; hb 09:42 BP 100 / 72; Pulse 92; Resp 18; Pulse Ox 100% on R/A; hj 11:07 BP 104 / 65; Pulse 92; Resp 18; Pulse Ox 100% on R/A; hj ED Course: 07:53 Patient arrived in ED. sb2 07:53 CIELO GRACE is Private Physician. sb2 08:03 Spenser Erwin MD is Attending Physician. kdr 08:05 Triage completed. hb 08:06 Arm band placed on right wrist. hb 08:16 Raman Cho, RAMSEY is Primary Nurse. hj 08:20 Patient has correct armband on for positive identification. Placed in gown. Bed in low hj position. Call light in reach. Side rails up X 1. Adult w/ patient. 08:20 Initial lab(s) drawn, by me, sent to lab. Urine collected: clean catch specimen. hj Inserted saline lock: 22 gauge in left antecubital area, using aseptic technique. Blood collected. 10:29 Flu and/or RSV swab sent to lab. dh3 11:27 CIELO GRACE is Referral Physician. kdr 11:32 No provider procedures requiring assistance completed. IV discontinued, intact, hj bleeding controlled, No redness/swelling at site. Pressure dressing applied. Administered Medications: 08:20 Drug: NS 0.9% 1000 ml Route: IV; Rate: 1 bolus; Site: left antecubital; hj 09:31 Follow up: IV Status: Completed infusion hj 08:20 Drug: Zofran 4 mg Route: IVP; Site: left antecubital; hj 09:30 Follow up: Response: No adverse reaction hj 10:14 Drug: NS 0.9% 1000 ml Route: IV; Rate: 1 bolus; Site: left antecubital; hj 11:33 Follow up: IV Status: Order to discontinue infusion; IV Intake: 700ml hj 10:14 Drug: morphine 4 mg Route: IVP; Site: left antecubital; hj 11:00 Follow up: Response: No adverse reaction; Pain is decreased hj 10:14 Drug: Zofran 4 mg Route: IVP; Site: left antecubital; hj 11:00 Follow up: Response: No adverse reaction hj 10:14 Drug: Pepcid 20 mg Route: IVP; Site: left antecubital; hj 11:00 Follow up: Response: No adverse reaction hj Intake: 11:33 IV: 700ml; Total: 700ml. Outcome: 11:27 Discharge ordered by . kdr 11:32 Discharged to home ambulatory, with family. hj 11:32 Condition: stable 11:32 Discharge instructions given to patient, family, Instructed on discharge instructions, follow up and referral plans. medication usage, Demonstrated understanding of instructions, follow-up care, medications, Prescriptions given X 3. 11:41 Patient left the ED. hj Signatures: Spenser Erwin MD MD [facility] Raman Cho, RN RN Charu Campbell, RN RN Emma Cho 3 Ksenia Miller
[2017-12-13 11:56] VITALS: TEMP 99.5
[2017-12-13 11:57] VITALS: O2SAT 100
[2017-12-13 11:58] VITALS: BP 104/65
== END 2017-12-13 11:41 | disposition home or self-care (01) ==
LOC: ER 07:50
DX: R19.7 Diarrhea, unspecified (principal)
CPT/HCPCS: 36415; 80048; 80076; 81003; 81025; 83690; 85025; 87804; 96361; 96374; 96375; 99284; J2405; J7030